=== PATIENT | female | born 1955 | race Caucasian/White ===

== ENCOUNTER → 2019-10-07 | Outpatient (CLI) | payer MEDICARE, OTHER ==
--- NOTE | 2019-10-07 19:34 | RAD ---
CHEST PA LATERAL Technique: PA and lateral views of the chest were obtained. Clinical History: September 11, 2014 Comparison: None. Findings: The heart is mildly enlarged. There is an old right sixth rib fracture. Linear opacities lung bases are seen previously likely discoid atelectasis or scar. Impression: Mild cardiomegaly. Stable appearance of the chest. Electronically signed by: Kevon Campbell III, MD (10/07/2019 7:32 PM) [id number]
[2019-10-07 19:58] LABS: BASO % 0 % (0-3); EOS % 0 % (0-3); HEMATOCRIT 44.5 % (36.0-47.0); HEMOGLOBIN 14.7 g/dL (12.0-15.5); LYMPH % 17 % (24-48); MEAN CORPUSCULAR HEMOGLOBIN 32 pg (25-35); MEAN CORPUSCULAR HGB CONC 33 g/dL (31-37); MEAN CORPUSCULAR VOLUME 95 fL (79-100); MONO # 0.9 x10^3/uL (0.0-1.1); MONO % 7 % (0-9); NEUT # 9.3 x10^3uL (1.8-7.7); NEUT % 76 % (31-73); PLATELET COUNT 253 x10^3/uL (140-400); RED BLOOD COUNT 4.67 x10^6/uL (3.50-5.40); RED CELL DISTRIBUTION WIDTH 13.1 % (11.5-14.5); WHITE BLOOD COUNT 12.3 x10^3/uL (4.0-11.0)
[2019-10-07 20:04] LABS: ALBUMIN 4.2 g/dL (3.4-5.0); ALBUMIN/GLOBULIN RATIO 1.1 (1.0-1.7); CALCIUM 9.7 mg/dL (8.5-10.1); CREATININE 0.7 mg/dL (0.6-1.0); GFR 85.1; POTASSIUM 4.2 mmol/L (3.5-5.1); TOTAL BILIRUBIN 0.4 mg/dL (0.2-1.0)
== END | disposition home or self-care (01) ==
LOC: RAD 18:55
PROVIDERS: ATTEND Family Medicine
DX: J10.1 Influenza due to other identified influenza virus with other respiratory manifestations (principal); I51.7 Cardiomegaly
CPT/HCPCS: 36415; 71046; 80053; 85025

== ENCOUNTER 2020-06-08 12:23 | Emergency (ER) | payer MEDICARE, OTHER ==
[~2020-06-08] VITALS: Ht 149.9 cm; Wt 66.0 kg
--- NOTE | 2020-06-08 12:41 | EKG ---
[address] [address] Test Date: 2020-06-08 Test Time: 12:34:37 Pat Name: YOANDY CORLEY Department: Room: Gender: F [employer]il[employer] Maker: TORRI : 1955 Requested By: GIO MOREIRA Order Number: [id number] Reading MD: Bhavin Hung Measurements Intervals [employer] Rate: 114 P: 70 AR: 164 QRS: 30 QRSD: 68 T: 51 QT: 314 QTc: 436 Interpretive Statements SINUS TACHYCARDIA LOW VOLTAGE ABNORMAL ECG Electronically Signed On 06-09-2020 10:33:04 [employer]ARN TESTER by Bhavin Hung
[2020-06-08] MEDS ORDERED: ASPIRIN CHEWABLE 81 MG TABLET. PO ONE (12:45)
[2020-06-08 12:52] LABS: BASO % 0 % (0-3); EOS # 0.1 x10^3/uL (0.0-0.7); EOS % 1 % (0-3); HEMATOCRIT 38.2 % (36.0-47.0); HEMOGLOBIN 12.7 g/dL (12.0-15.5); LYMPH % 7 % (24-48); MEAN CORPUSCULAR HEMOGLOBIN 32 pg (25-35); MEAN CORPUSCULAR HGB CONC 33 g/dL (31-37); MEAN CORPUSCULAR VOLUME 98 fL (79-100); MONO # 0.4 x10^3/uL (0.0-1.1); MONO % 3 % (0-9); NEUT # 13.8 x10^3uL (1.8-7.7); NEUT % 90 % (31-73); PLATELET COUNT 190 x10^3/uL (140-400); RED BLOOD COUNT 3.92 x10^6/uL (3.50-5.40); RED CELL DISTRIBUTION WIDTH 13.4 % (11.5-14.5); WHITE BLOOD COUNT 15.4 x10^3/uL (4.0-11.0)
[2020-06-08] MEDS ORDERED: IV NORMAL SALINE 1,000ML 1,000 ML IV ONE (13:00)
--- NOTE | 2020-06-08 13:04 | PHYS DOC ---
Past History Past Medical History: Anxiety, Asthma, COPD, Fibromyalgia, Migraines Additional Past Medical Histor: osteoporosis, restless legs, irregular heart beat, sleep apnea, disc diseas Past Surgical History: Tonsillectomy, Tubal ligation, Other Additional Past Surgical Histo: , bunionectomy, neck surgery Alcohol Use: None General Adult EDM: Chief Complaint: CHEST PAIN HPI: HPI: 64-year-old female presents with shortness of breath and irregular heartbeat. Patient has COPD. She was recently treated with 60 mg of prednisone a day for 10 days. She has been off Eliquis now for 3 days and her shortness of breath has gotten worse again. She has been on antibiotics multiple times over the last 3 months. Her most recent stress test was a couple years ago. She was told she had an irregular heartbeat and some aortic stenosis. She does not know about any vessel occlusions. She did not mention of chest pain to me, but does state that when she is exerting herself she gets sweaty and more short of breath. She denies fever or chills. Review of Systems: Review of Systems: Constitutional: Denies fever or chills Eyes: Denies change in visual acuity HENT: Denies nasal congestion or sore throat Respiratory: shortness of breath Cardiovascular: Denies chest pain or edema GI: Denies abdominal pain, nausea, vomiting, bloody stools or diarrhea : Denies dysuria Musculoskeletal: Denies back pain or joint pain Integument: Denies rash Neurologic: Denies headache, focal weakness or sensory changes Endocrine: Denies polyuria or polydipsia Lymphatic: Denies swollen glands Psychiatric: Denies depression or anxiety Current Medications: Current Meds: Current Medications Medications (Trade) Dose Ordered Sig/Lars Start Time Stop Time Status Last Admin Dose Admin Aspirin (Aspirin Chewable) 324 mg 1X ONCE 06/08/20 12:45 06/08/20 12:46 DC Sodium Chloride 1,000 ml @ 1,000 mls/hr 1X ONCE 06/08/20 13:00 06/08/20 13:59 Allergies: Allergies: Allergies Coded Allergies Type Severity Reaction Last Updated Verified Sulfa (Sulfonamide Antibiotics) Allergy Severe Swelling 06/08/20 Yes erythromycin base Allergy Severe Swelling 06/08/20 Yes moxifloxacin HCl Allergy Severe Swelling 06/08/20 Yes loracarbef Allergy Mild Rash 06/08/20 Yes Physical Exam: PE: Constitutional: Well developed, well nourished, no acute distress, non-toxic appearance. [] HENT: Normocephalic, atraumatic, bilateral external ears normal, oropharynx moist, no oral exudates, nose normal. [] Eyes: PERRLA, EOMI, conjunctiva normal, no discharge. [] Neck: Normal range of motion, no tenderness, supple, no stridor. [] Cardiovascular: Heart rate regular rhythm, no murmur [] Lungs & Thorax: Bilateral breath sounds with diffuse expiratory wheezing. [] Abdomen: Bowel sounds normal, soft, no tenderness, no masses, no pulsatile masses. [] Skin: Warm, dry, no erythema, no rash. [] Back: No tenderness, no CVA tenderness. [] Extremities: No tenderness, no cyanosis, no clubbing, ROM intact, no edema. [] Neurologic: Alert and oriented X 3, normal motor function, normal sensory function, no focal deficits noted. [] Psychologic: Affect normal, judgement normal, mood normal. [] Current Patient Data: Labs: Laboratory Tests Test 06/08/20 12:35 White Blood Count 15.4 x10^3/uL (4.0-11.0) H Red Blood Count 3.92 x10^6/uL (3.50-5.40) Hemoglobin 12.7 g/dL (12.0-15.5) Hematocrit 38.2 % (36.0-47.0) Mean Corpuscular Volume 98 fL (79-100) Mean Corpuscular Hemoglobin 32 pg (25-35) Mean Corpuscular Hemoglobin Concent 33 g/dL (31-37) Red Cell Distribution Width 13.4 % (11.5-14.5) Platelet Count 190 x10^3/uL (140-400) Neutrophils (%) (Auto) 90 % (31-73) H Lymphocytes (%) (Auto) 7 % (24-48) L Monocytes (%) (Auto) 3 % (0-9) Eosinophils (%) (Auto) 1 % (0-3) Basophils (%) (Auto) 0 % (0-3) Neutrophils # (Auto) 13.8 x10^3uL (1.8-7.7) H Lymphocytes # (Auto) 1.0 x10^3/uL (1.0-4.8) Monocytes # (Auto) 0.4 x10^3/uL (0.0-1.1) Eosinophils # (Auto) 0.1 x10^3/uL (0.0-0.7) Basophils # (Auto) 0.0 x10^3/uL (0.0-0.2) Platelet Estimate Pending Vital Signs: Vital Signs Date Time Temp Pulse Resp B/P (MAP) Pulse Ox O2 Delivery O2 Flow Rate FiO2 06/08/20 12:30 99.6 110 22 83/53 (63) 96 Nasal Cannula 3.0 EKG: EKG: Sinus tachycardia, rate 114, normal axis, no ST elevation or depression. [] Radiology/Procedures: Radiology/Procedures: [] Impressions: PORTABLE CHEST 1V History: Reason: CHEST PAIN / Spl. Instructions: / History: Comparison: October 07, 2019 Findings: Bilateral interstitial thickening. No pleural effusion. No pneumothorax. Postop changes lower cervical spine. Enlarged cardiac size, unchanged. Bilateral glenohumeral DJD. Impression: 1. Bilateral interstitial thickening, may resent pulmonary edema or infection including viral pneumonia. 2. Unchanged enlarged cardiac size. Electronically signed by: Fidel Woo DO (06/08/2020 1:02 PM) [id number] DICTATED AND SIGNED BY: FIDEL WOO DO DATE: 06/08/20 1302 CC: GIO MOREIRA DO; LV DELGADO MD ~ EXAM: CT angiography of the chest with intravenous contrast. HISTORY: Shortness of breath. Tachycardia. Hypertension. TECHNIQUE: Computed tomographic images of the chest were obtained following the administration of intravenous contrast according to angiography protocol. Multiplanar reformatting was performed and three dimensional maximum intensity projection images were obtained. *One or more of the following individualized dose reduction techniques were utilized for this examination: 1. Automated exposure control. 2. Adjustment of the mA and/or kV according to patient size. 3. Use of iterative reconstruction technique. COMPARISON: None. FINDINGS: There is no evidence of pulmonary embolus. The heart is normal in size. There is a small pericardial effusion. There is calcified atherosclerotic plaque involving the aorta and main aortic branch vessels. There are enlarged mediastinal and hilar lymph nodes. For reference purposes, there is a right paratracheal lymph node measuring 2.4 cm, a prevascular lymph node measuring 2.0 cm and right hilar lymph node measuring 2.0 cm. There are trace bilateral pleural effusions. There is no pneumothorax. There is fairly diffuse groundglass infiltrate with septal line thickening. No consolidation is seen. There is hepatomegaly and hepatic steatosis. There are degenerative changes involving the spine. There is no suspicious osseous lesion. There is cervical spinal fusion instrumentation, partially included on the [id number]. IMPRESSION: 1. No evidence of pulmonary embolism. 2. Diffuse groundglass infiltrate with superimposed areas of septal line thickening. No consolidation is seen. 3. Mediastinal and hilar lymphadenopathy, likely reactive given the aforementioned finding. 4. Hepatomegaly and hepatic steatosis. Electronically signed by: Heidi Gomez MD (06/08/2020 2:55 PM) [id number] DICTATED AND SIGNED BY: HEIDI GOMEZ MD DATE: 06/08/20 1455 CC: GIO MOREIRA DO; LV DELGADO MD ~ Heart Score: HEART Score for Chest Pain: HEART Score for Chest Pain Response (Comments) Value History Moderately Suspicious 1 ECG Nonspecific Repolarizatio 1 Age >45 - < 65 1 Risk Factors 1 or 2 Risk Factors 1 Troponin < Normal Limit 0 Total 4 Risk Factors: Risk Factors: DM, Current or recent (<one month) smoker, HTN, HLP, family history of CAD, obesity. Risk Scores: Score 0 - 3: 2.5% MACE over next 6 weeks - Discharge Home Score 4 - 6: 20.3% MACE over next 6 weeks - Admit for Clinical Observation Score 7 - 10: 72.7% MACE over next 6 weeks - Early Invasive Strategies Course & Med Decision Making: Course & Med Decision Making Pertinent Labs and Imaging studies reviewed. (See chart for details) The patient has a mildly elevated white count of which is expected being on prednisone recently. She is hypotensive though she continues to map over 60. She is awake and cooperative and mentating well. She was recently on 60 mg a day of prednisone for 10 days. I wonder if her hypotension could be partially related to cortisol suppression. I have ordered a DuoNeb treatment, 125 Solu- Medrol. She is on 3 L by nasal cannula with an O2 sat 96%. Her heart rate was 114 on arrival and has decreased to around 100. She is diffusely wheezing all over lung mason. I have ordered a CTA to rule out pulmonary embolus. I spoke with her primary doctor Dr. Delgado and he thought this repeat episode warranted potential transfer to [facility]. I spoke with the hospitalist at [facility], Dr. Musa and he has accepted the patient for transfer and admission. She will go by ambulance. EKG shows sinus tachycardia, troponin is normal. 40 minutes of critical care time was spent on this patient exclusive of other billable procedures. [] Dragon Disclaimer: Dragon Disclaimer: This electronic medical record was generated, in whole or in part, using a voice recognition dictation system. Departure Departure: Impression: Primary Impression: COPD with acute exacerbation Additional Impression: Hypotension Disposition: 01 DC HOME SELF CARE/HOMELESS Condition: STABLE Referrals: LV DELGADO MD (PCP) GIO MOREIRA DO Jun 08, 2020 13:04
[2020-06-08 13:06] LABS: CALCIUM 9.2 mg/dL (8.5-10.1); CREATININE 0.9 mg/dL (0.6-1.0); GFR 63.4; POTASSIUM 3.9 mmol/L (3.5-5.1)
[2020-06-08 13:19] LABS: ALBUMIN 3.2 g/dL (3.4-5.0); ALBUMIN/GLOBULIN RATIO 0.8 (1.0-1.7); TOTAL BILIRUBIN 1.1 mg/dL (0.2-1.0); TOTAL PROTEIN 7.3 g/dL (6.4-8.2)
[2020-06-08] MEDS ORDERED: methylPREDNISolone SOD SUCC PF 125 MG/2 ML VIAL. IV ONE (13:30)
[2020-06-08 13:32] LABS: % EOS 2 % (0-5); % LYMPHS 5 % (24-48); % MONOS 2 % (0-10); % SEGS 91 % (35-66); PLT ESTIMATE ADEQUATE (ADEQUATE)
[2020-06-08 13:46] LABS: BACTERIA,URINE MOD /HPF (0-FEW); BILIRUBIN,URINE NEG (NEG); CLARITY,URINE HAZY; COLOR,URINE YELLOW; GLUCOSE,URINE NEG (NEG); NITRITE,URINE NEG (NEG); RBC,URINE 0 /HPF (0-2); SQUAMOUS EPITHELIAL CELL,UR FEW /LPF; UROBILINOGEN,URINE 0.2 mg/dL (0.2 mg/dL)
[2020-06-08] MEDS ORDERED: IPRATRPIUM/ALBUTEROL 0.5/2.5MG 3 ML NEBU. NEB ONE (14:00)
[2020-06-08] MEDS ORDERED: IOHEXOL 350 MG/ML 100 ML VIAL. IV ONE (14:15)
--- NOTE | 2020-06-08 14:59 | RAD ---
EXAM: CT angiography of the chest with intravenous contrast. HISTORY: Shortness of breath. Tachycardia. Hypertension. TECHNIQUE: Computed tomographic images of the chest were obtained following the administration of intravenous contrast according to angiography protocol. Multiplanar reformatting was performed and three dimensional maximum intensity projection images were obtained. *One or more of the following individualized dose reduction techniques were utilized for this examination: 1. Automated exposure control. 2. Adjustment of the mA and/or kV according to patient size. 3. Use of iterative reconstruction technique. COMPARISON: None. FINDINGS: There is no evidence of pulmonary embolus. The heart is normal in size. There is a small pericardial effusion. There is calcified atherosclerotic plaque involving the aorta and main aortic branch vessels. There are enlarged mediastinal and hilar lymph nodes. For reference purposes, there is a right paratracheal lymph node measuring 2.4 cm, a prevascular lymph node measuring 2.0 cm and right hilar lymph node measuring 2.0 cm. There are trace bilateral pleural effusions. There is no pneumothorax. There is fairly diffuse groundglass infiltrate with septal line thickening. No consolidation is seen. There is hepatomegaly and hepatic steatosis. There are degenerative changes involving the spine. There is no suspicious osseous lesion. There is cervical spinal fusion instrumentation, partially included on the [id number]. IMPRESSION: 1. No evidence of pulmonary embolism. 2. Diffuse groundglass infiltrate with superimposed areas of septal line thickening. No consolidation is seen. 3. Mediastinal and hilar lymphadenopathy, likely reactive given the aforementioned finding. 4. Hepatomegaly and hepatic steatosis. Electronically signed by: Heidi Mckeon MD (06/08/2020 2:55 PM) [id number]
[2020-06-08 16:44] VITALS: BP 93/45
== END 2020-06-08 17:20 | disposition short-term general hospital (02) ==
LOC: ER 12:23
DX: J44.1 Chronic obstructive pulmonary disease with (acute) exacerbation (principal); I95.9 Hypotension, unspecified; I49.9 Cardiac arrhythmia, unspecified; F41.9 Anxiety disorder, unspecified; M79.7 Fibromyalgia; G43.909 Migraine, unspecified, not intractable, without status migrainosus; Z20.828 Contact with and (suspected) exposure to other viral communicable diseases; Z88.2 Allergy status to sulfonamides; Z88.1 Allergy status to other antibiotic agents; Z88.8 Allergy status to other drugs, medicaments and biological substances
CPT/HCPCS: 36415; 71045; 71275; 80053; 81001; 82803; 83880; 84484; 85007; 85025; 87086; 93005; 94640; 96361; 96374; 99285; C9803; J2930; J7030; Q9967; U0003

== ENCOUNTER → 2021-01-11 | Outpatient (CLI) | payer OTHER ==
--- NOTE | 2021-01-11 15:55 | RAD ---
EXAM: Cervical spine, 5 views. HISTORY: Pain. COMPARISON: None. FINDINGS: There is a disc space fusion device at C4-C5. There is instrumented intraspinal fusion and interbody fusion at C6-C7. There is cervical kyphosis. There is mild anterolisthesis of C4 on C5. Thi s does not change between flexion and extension. There is no clear motion at the fused levels between flexion and extension. There is degenerative endplate remodeling with disc space narrowing and anter ior osteophytosis at C5-C6. There is multilevel facet arthropathy. There is an inferior right lateral head tilt. IMPRESSION: 1. Displaced fusion device at C4-C5 and instrumented anterior spinal fusion and interbody fusion at C 6-C7. There is no motion at the fused levels between flexion and extension. 2. Cervical kyphosis and mild anterolisthesis of C4 on C5. 3. Multiple level degenerative change, primarily at C5-C6. Electronically signed by: Heidi Mckeon MD (01/11/2021 3:53 PM) [id number]
== END ==
LOC: RAD 15:12
PROVIDERS: ATTEND Neurological Surgery
DX: M47.12 Other spondylosis with myelopathy, cervical region (principal); M43.12 Spondylolisthesis, cervical region; M40.292 Other kyphosis, cervical region
CPT/HCPCS: 72040

== ENCOUNTER 2021-09-04 13:23 | Inpatient (IN) | payer MEDICARE, OTHER ==
[~2021-09-04] VITALS: Ht 149.9 cm; Wt 65.2 kg
[2021-09-04] MEDS ORDERED: IOHEXOL 350 MG/ML 100 ML VIAL. IV ONE (14:45)
[2021-09-04] MEDS ORDERED: IPRATRPIUM/ALBUTEROL 0.5/2.5MG 3 ML NEBU. NEB ONE (14:45)
[2021-09-04] MEDS ORDERED: methylPREDNISolone SOD SUCC PF 125 MG/2 ML VIAL. IV ONE (14:45)
[2021-09-04] MEDS ORDERED: CONTRAST GIVEN. MC PRN (15:00)
[2021-09-04 15:20] LABS: BASO % 0 % (0-3); EOS # 0.2 x10^3/uL (0.0-0.7); EOS % 2 % (0-3); HEMATOCRIT 35.9 % (36.0-47.0); HEMOGLOBIN 11.8 g/dL (12.0-15.5); LYMPH # 1.2 x10^3/uL (1.0-4.8); LYMPH % 10 % (24-48); MEAN CORPUSCULAR HEMOGLOBIN 30 pg (25-35); MEAN CORPUSCULAR HGB CONC 33 g/dL (31-37); MEAN CORPUSCULAR VOLUME 91 fL (79-100); MONO # 0.6 x10^3/uL (0.0-1.1); MONO % 5 % (0-9); NEUT # 10.5 x10^3uL (1.8-7.7); NEUT % 84 % (31-73); PLATELET COUNT 284 x10^3/uL (140-400); RED BLOOD COUNT 3.94 x10^6/uL (3.50-5.40); RED CELL DISTRIBUTION WIDTH 14.2 % (11.5-14.5); WHITE BLOOD COUNT 12.6 x10^3/uL (4.0-11.0)
[2021-09-04 15:30] LABS: CALCIUM 8.8 mg/dL (8.5-10.1); CREATININE 0.6 mg/dL (0.6-1.0); POTASSIUM 4.6 mmol/L (3.5-5.1)
[2021-09-04 15:36] LABS: ALBUMIN 3.2 g/dL (3.4-5.0); ALBUMIN/GLOBULIN RATIO 0.9 (1.0-1.7); TOTAL BILIRUBIN 0.7 mg/dL (0.2-1.0); TOTAL PROTEIN 6.9 g/dL (6.4-8.2)
[2021-09-04 16:31] LABS: BILIRUBIN,URINE NEG (NEG); CLARITY,URINE CLEAR; COLOR,URINE YELLOW; GLUCOSE,URINE NEG (NEG)
[2021-09-04 16:32] LABS: BACTERIA,URINE 0 /HPF (0-FEW); NITRITE,URINE NEG (NEG); RBC,URINE 0 /HPF (0-2); UROBILINOGEN,URINE 0.2 mg/dL (0.2 mg/dL); WBC,URINE 0 /HPF (0-4)
--- NOTE | 2021-09-04 16:32 | RAD ---
CT arteriogram of the chest. HISTORY: Chest pain, short of air CT arteriogram of the chest was done using 100 mL Omnipaque 350 contrast. Coronal MIP images were rec onstructed. Thyroid is homogeneous. There is mediastinal adenopathy adjacent the aortic arch and in t he paratracheal region. Hilar lymph nodes are upper normal in size. There is a trace of pleural effus ion on each side. Visualized portions of the liver and spleen are unremarkable. Adrenal glands are no rmal. There are diffuse bilateral groundglass infiltrates in the lungs which suggest Covid pneumonia although other atypical pneumonia is possible. Study is negative for pulmonary embolus. IMPRESSION: 1. Bilateral groundglass infiltrates. 2. Mediastinal adenopathy. 3. Negative for a pulmonary embolus. 4. Trace of pleural effusion on each side. PQRS Compliance Statement: One or more of the following individualized dose reduction techniques were utilized for this examinat ion: 1. Automated exposure control 2. Adjustment of the mA and/or kV according to patient size 3. Use of iterative reconstruction technique Electronically signed by: Tru Hunter MD (09/04/2021 4:30 PM) [facility]
[2021-09-04 16:44] LABS: INFLUENZA A PATIENT NEGATIVE (NEGATIVE); INFLUENZA B PATIENT NEGATIVE (NEGATIVE)
[2021-09-04] MEDS ORDERED: AZITHROMYCIN 500 MG in IV NORMAL SALINE 250ML 250 ML IV ONE (17:00)
[2021-09-04] MEDS ORDERED: IV NORMAL SALINE 50ML 50 ML ONE (17:12)
[2021-09-04] MEDS ORDERED: cefTRIAXone SODIUM 1 GM VIAL ONE (17:12)
--- NOTE | 2021-09-04 17:17 | PHYS DOC ---
Past History Past Medical History: Anxiety, Asthma, COPD, Fibromyalgia, Migraines Additional Past Medical Histor: osteoporosis, restless legs, irregular heart beat, sleep apnea, disc diseas (KATHI RAMOS APRN) Past Surgical History: No Surgical History Additional Past Surgical Histo: , bunionectomy, neck surgery (KATHI RAMOS APRN) Alcohol Use: None (KATHI RAMOS APRN) General Adult EDM: Chief Complaint: SHORTNESS OF BREATH HPI: HPI: Patient is a 65-year-old female who presents to the emergency department for multiple complaints that started on Monday. Patient is reporting increased cough, shortness of breath, nausea, midsternal chest pressure worse with cough and deep inspiration and loss of taste and smell. She reports many sick exposures at home and her nephew is Covid positive. Patient has a history of COPD she does use Combivent breathing treatments at home. She does not have any home oxygen. Her found her oxygen at the [facility] and she has been wearing 3 L at home for the last 2 days. Her room air oxygen saturation was 80%. Patient was titrated on 4 L via nasal cannula and is satting at 98%. Patient reports that she saw Dr. Garcia in his office yesterday and received a IM injection of Rocephin. Patient denies any fevers, vomiting, diarrhea, abdominal pain. (KATHI RAMOS APRN) Review of Systems: Review of Systems: Constitutional: negative unless reported in HPI Eyes: negative unless reported in HPI HENT: negative unless reported in HPI Respiratory: negative unless reported in HPI Cardiovascular: negative unless reported in HPI GI: negative unless reported in HPI : negative unless reported in HPI Musculoskeletal: negative unless reported in HPI Integument: negative unless reported in HPI Neurologic: negative unless reported in HPI Endocrine: negative unless reported in HPI Lymphatic: negative unless reported in HPI Psychiatric: negative unless reported in HPI (KATHI RAMOS APRN) Current Medications: Current Meds: Current Medications Medications (Trade) Dose Ordered Sig/Lars Start Time Stop Time Status Last Admin Dose Admin Albuterol/ Ipratropium (Duoneb) 3 ml 1X ONCE 09/04/21 14:45 09/04/21 14:46 DC 09/04/21 15:44 3 ML Azithromycin 500 mg/Sodium Chloride 250 ml @ 250 mls/hr 1X ONCE 09/04/21 17:00 09/04/21 17:59 UNV Ceftriaxone Sodium 1 gm/ Sodium Chloride 50 ml @ 100 mls/hr 1X ONCE 09/04/21 17:00 09/04/21 17:29 UNV Info (Do NOT chart on this entry -- for MONITORING) 1 each PRN DAILY PRN 09/04/21 15:00 09/06/21 14:59 Iohexol (Omnipaque 350 Mg/ml) 100 ml 1X ONCE 09/04/21 14:45 09/04/21 14:47 DC 09/04/21 14:45 100 ML Methylprednisolone Sodium Succinate (SOLU-Medrol 125MG VIAL) 125 mg 1X ONCE 09/04/21 14:45 09/04/21 14:46 DC 09/04/21 15:29 125 MG (KATHI RAMOS APRN) Allergies: Allergies: Allergies Coded Allergies Type Severity Reaction Last Updated Verified Sulfa (Sulfonamide Antibiotics) Allergy Severe Swelling 06/08/20 Yes erythromycin base Allergy Severe Swelling 06/08/20 Yes moxifloxacin HCl Allergy Severe Swelling 06/08/20 Yes loracarbef Allergy Mild Rash 06/08/20 Yes (KATHI RAMOS APRN) Physical Exam: PE: Constitutional: Well developed, well nourished, no acute distress, non-toxic appearance. [] HENT: Normocephalic, atraumatic, bilateral external ears normal, oropharynx moist, no oral exudates, nose normal. [] Eyes: PERRL, EOMI, conjunctiva normal, no discharge. [] Neck: Normal range of motion, no tenderness, supple, no stridor. [] Cardiovascular:Heart rate regular rhythm, no murmur, midsternal chest pain reproducible with cough and deep inspiration [] Lungs & Thorax: Wheezing noted throughout Abdomen: Bowel sounds normal, soft, no tenderness, no masses, no pulsatile masses. [] Skin: Warm, dry, no erythema, no rash. [] Back: Normal range of motion Extremities: No tenderness, no cyanosis, no clubbing, ROM intact, no edema. [] Neurologic: Alert and oriented X 3, normal motor function, normal sensory function, no focal deficits noted. [] Psychologic: Affect normal, judgement normal, mood normal. [] (RACHEL,KATHI L CARTON MARKER MACHINE) Current Patient Data: Labs: Laboratory Tests Test 09/04/21 14:58 09/04/21 15:32 09/04/21 15:58 White Blood Count 12.6 x10^3/uL (4.0-11.0) H Red Blood Count 3.94 x10^6/uL (3.50-5.40) Hemoglobin 11.8 g/dL (12.0-15.5) L Hematocrit 35.9 % (36.0-47.0) L Mean Corpuscular Volume 91 fL (79-100) Mean Corpuscular Hemoglobin 30 pg (25-35) Mean Corpuscular Hemoglobin Concent 33 g/dL (31-37) Red Cell Distribution Width 14.2 % (11.5-14.5) Platelet Count 284 x10^3/uL (140-400) Neutrophils (%) (Auto) 84 % (31-73) H Lymphocytes (%) (Auto) 10 % (24-48) L Monocytes (%) (Auto) 5 % (0-9) Eosinophils (%) (Auto) 2 % (0-3) Basophils (%) (Auto) 0 % (0-3) Neutrophils # (Auto) 10.5 x10^3uL (1.8-7.7) H Lymphocytes # (Auto) 1.2 x10^3/uL (1.0-4.8) Monocytes # (Auto) 0.6 x10^3/uL (0.0-1.1) Eosinophils # (Auto) 0.2 x10^3/uL (0.0-0.7) Basophils # (Auto) 0.0 x10^3/uL (0.0-0.2) Sodium Level 135 mmol/L (136-145) L Potassium Level 4.6 mmol/L (3.5-5.1) Chloride Level 98 mmol/L (98-107) Carbon Dioxide Level 28 mmol/L (21-32) Anion Gap 9 (6-14) Blood Urea Nitrogen 11 mg/dL (7-20) Creatinine 0.6 mg/dL (0.6-1.0) Estimated GFR (Cockcroft-Gault) 101.0 BUN/Creatinine Ratio 18 (6-20) Glucose Level 120 mg/dL (70-99) H Lactic Acid Level 0.8 mmol/L (0.4-2.0) Calcium Level 8.8 mg/dL (8.5-10.1) Total Bilirubin 0.7 mg/dL (0.2-1.0) Aspartate Amino Transferase (AST) 33 U/L (15-37) Alanine Aminotransferase (ALT) 26 U/L (14-59) Alkaline Phosphatase 96 U/L (46-116) Troponin I High Sensitivity 4 ng/L (4-50) Total Protein 6.9 g/dL (6.4-8.2) Albumin 3.2 g/dL (3.4-5.0) L Albumin/Globulin Ratio 0.9 (1.0-1.7) L Influenza Type A (Rapid) Negative (NEGATIVE) Influenza Type B (Rapid) Negative (NEGATIVE) SARS-CoV-2 Antigen (Rapid) Negative (NEGATIVE) Urine Collection Type Clean catch Urine Color Yellow Urine Clarity Clear Urine pH 7.0 Urine Specific [place] 1.010 Urine Protein Neg (NEG-TRACE) Urine Glucose (UA) Neg mg/dL (NEG) Urine Ketones (Stick) Neg mg/dL (NEG) Urine Blood Neg (NEG) Urine Nitrite Neg (NEG) Urine Bilirubin Neg (NEG) Urine Urobilinogen Dipstick 0.2 mg/dL (0.2 mg/dL) Urine Leukocyte Esterase Neg (NEG) Urine RBC 0 /HPF (0-2) Urine WBC 0 /HPF (0-4) Urine Bacteria 0 /HPF (0-FEW) Vital Signs: Vital Signs Date Time Temp Pulse Resp B/P (MAP) Pulse Ox O2 Delivery O2 Flow Rate FiO2 09/04/21 15:45 91 Nasal Cannula 4.0 09/04/21 14:20 99.0 96 18 101/70 (80) (KATHI RAMOS CARTON MARKER MACHINE) EKG: EKG: EKG performed by ER staff at 1446 shows sinus rhythm with a rate of 94, QTC of 435, no STEMI read by Dr. Moreira at 1450. [] (KATHI RAMOS CARTON MARKER MACHINE) Radiology/Procedures: Radiology/Procedures: []PROCEDURE: CT ANGIOGRAPHY CHEST CT arteriogram of the chest. HISTORY: Chest pain, short of air CT arteriogram of the chest was done using 100 mL Omnipaque 350 contrast. Coronal MIP images were reconstructed. Thyroid is homogeneous. There is mediastinal adenopathy adjacent the aortic arch and in the paratracheal region. Hilar lymph nodes are upper normal in size. There is a trace of pleural effusion on each side. Visualized portions of the liver and spleen are unremarkable. Adrenal glands are normal. There are diffuse bilateral groundglass infiltrates in the lungs which suggest Covid pneumonia although other atypical pneumonia is possible. Study is negative for pulmonary embolus. IMPRESSION: 1. Bilateral groundglass infiltrates. 2. Mediastinal adenopathy. 3. Negative for a pulmonary embolus. 4. Trace of pleural effusion on each side. PQRS Compliance Statement: One or more of the following individualized dose reduction techniques were utilized for this examination: 1. Automated exposure control 2. Adjustment of the mA and/or kV according to patient size 3. Use of iterative reconstruction technique Electronically signed by: Tru Hunter MD (09/04/2021 4:30 PM) [facility] DICTATED AND SIGNED BY: TRU HUNTER MD DATE: 09/04/21 1625 CC: LV DELGADO MD; KATHI RAMOS APRN ~MTH0 0 (KATHI RAMOS APRN) Heart Score: C/O Chest Pain: Yes HEART Score for Chest Pain: HEART Score for Chest Pain Response (Comments) Value History Slighlty/Non-Suspicious 0 ECG Normal 0 Age >45 - < 65 1 Risk Factors 1 or 2 Risk Factors 1 Troponin < Normal Limit 0 Total 2 Risk Factors: Risk Factors: DM, Current or recent (<one month) smoker, HTN, HLP, family history of CAD, obesity. Risk Scores: Score 0 - 3: 2.5% MACE over next 6 weeks - Discharge Home Score 4 - 6: 20.3% MACE over next 6 weeks - Admit for Clinical Observation Score 7 - 10: 72.7% MACE over next 6 weeks - Early Invasive Strategies (KATHI RAMOS APRN) Course & Med Decision Making: Course & Med Decision Making Pertinent Labs and Imaging studies reviewed. (See chart for details) [] Patient presents to the emergency department for multiple complaints. Patient is reporting increased shortness of breath, increased cough, midsternal chest pressure worse with cough and deep inspiration, loss of taste and smell and nausea. Patient does not wear any oxygen at home for her COPD but has been using oxygen that she found at the [facility] over the last 2 days. She was 80% on room air and is on 4 L via nasal cannula with an O2 saturation of 98%. Patient's work-up in the emergency department consisted of blood work, EKG, urinalysis. Imaging needed to be done of patient's chest to rule out pneumonia. She reports that Dr. Quevedo wants a CT a of her chest. This was ordered also to rule out pulmonary embolism since patient does have complaints of chest pain and shortness of breath. Patient is noted to have wheezing throughout her lung mason. Patient treated with steroids and a DuoNeb for COPD exacerbation as well as IV fluids. Patient was noted to have mild leukocytosis with a white blood cell count of 12.6. Her CMP and troponin were negative. No lactic acidosis was noted. Patient CTA shows bilateral groundglass opacities and trace pleural effusions. Patient will be treated with IV antibiotics. Although she is allergic to cephalosporins and erythromycin base her and her states that she tolerates Rocephin and azithromycin. I discussed the need for admissio n with patient and her for oxygen therapy and IV antibiotics and they are agreeable at this time. I discussed patient's findings with Dr. Garcia who agreed to admit the patient under his services for pneumonia and hypoxia. ER bridge orders placed at this time 1716. (KATHI RAMOS APRN) Dragon Disclaimer: Dragon Disclaimer: This electronic medical record was generated, in whole or in part, using a voice recognition dictation system. (KATHI RAMOS APRN) Attending Co-Sign The patient was seen and interviewed as well as examined at the bedside. The chart was reviewed. The case was discussed. Agree with the plan of care. (GIO MOREIRA DO) Departure Departure: Impression: Primary Impression: Pneumonia Qualified Codes: J18.9 - Pneumonia, unspecified organism Additional Impressions: Hypoxia Person under investigation for COVID-19 Disposition: ADMITTED INPATIENT Admitting Physician: Lv Delgado (KATHI RAMOS APRN) Condition: STABLE Referrals: LV DELGADO MD (PCP) Attending Signature Attending Signature I have participated in the care of this patient and I have reviewed and agree with all pertinent clinical information above including history, exam, and recommendations. (AYAD HEADLEY MD) KATHI RAMOS APRN Sep 04, 2021 17:17 AYAD HEADLEY MD Sep 05, 2021 01:10 GIO MOREIRA DO Sep 05, 2021 06:45
--- NOTE | 2021-09-04 17:22 | EKG ---
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
[2021-09-04] MEDS ORDERED: IV NORMAL SALINE 250ML 250 ML ONE (18:06)
[2021-09-04] MEDS ORDERED: AZITHROMYCIN 500 MG VIAL. IV ONE (18:06)
[2021-09-04] MEDS ORDERED: rOPINIRole 1 MG TABLET. PO ONE (18:45)
[2021-09-04] MEDS: GABAPENTIN 400 MG CAPSULE. PO SCH (21:37)
[2021-09-04] MEDS: methylPREDNISolone SOD SUCC PF 40 MG/ML VIAL. IV SCH (21:38)
[2021-09-04] MEDS: IPRATRPIUM/ALBUTEROL 0.5/2.5MG 3 ML NEBU. NEB SCH (21:50)
[2021-09-05] MEDS: IPRATRPIUM/ALBUTEROL 0.5/2.5MG 3 ML NEBU. NEB SCH ×4 (05:59→19:54)
[2021-09-05] MEDS: methylPREDNISolone SOD SUCC PF 40 MG/ML VIAL. IV SCH ×3 (06:30→22:53)
[2021-09-05 07:24] LABS: BASO % 0 % (0-3); EOS % 0 % (0-3); HEMATOCRIT 36.8 % (36.0-47.0); HEMOGLOBIN 12.3 g/dL (12.0-15.5); LYMPH # 0.6 x10^3/uL (1.0-4.8); LYMPH % 6 % (24-48); MEAN CORPUSCULAR HEMOGLOBIN 31 pg (25-35); MEAN CORPUSCULAR HGB CONC 34 g/dL (31-37); MEAN CORPUSCULAR VOLUME 92 fL (79-100); MONO # 0.5 x10^3/uL (0.0-1.1); MONO % 5 % (0-9); NEUT # 9.4 x10^3uL (1.8-7.7); NEUT % 89 % (31-73); PLATELET COUNT 281 x10^3/uL (140-400); RED CELL DISTRIBUTION WIDTH 14.3 % (11.5-14.5); WHITE BLOOD COUNT 10.6 x10^3/uL (4.0-11.0)
[2021-09-05 07:47] LABS: ALBUMIN/GLOBULIN RATIO 0.7 (1.0-1.7); CALCIUM 8.9 mg/dL (8.5-10.1); CREATININE 0.7 mg/dL (0.6-1.0); GFR 84.5; POTASSIUM 4.6 mmol/L (3.5-5.1); TOTAL BILIRUBIN 0.2 mg/dL (0.2-1.0); TOTAL PROTEIN 7.4 g/dL (6.4-8.2)
[2021-09-05] MEDS: ATORVASTATIN CALCIUM 20 MG TABLET PO SCH (09:53)
[2021-09-05] MEDS: GABAPENTIN 400 MG CAPSULE. PO SCH ×2 (09:53→22:53)
[2021-09-05] MEDS: MORPHINE ER 30 MG TABLET.ER PO SCH ×2 (11:39→19:54)
[2021-09-05] MEDS ORDERED: BENZONATATE 100 MG CAPSULE. PO PRN (12:30)
[2021-09-05] MEDS ORDERED: CETI10TA74 PO (13:13)
[2021-09-05] MEDS ORDERED: DULO60CA7 PO (13:13)
[2021-09-05] MEDS ORDERED: CEVI30CA11 PO (13:13)
[2021-09-05] MEDS ORDERED: METO-239 PO (13:13)
[2021-09-05] MEDS ORDERED: LORA-254 PO (13:13)
[2021-09-05] MEDS ORDERED: TAMS0.4C97 PO (13:13)
[2021-09-05] MEDS ORDERED: ALEN70TA71 PO (13:13)
[2021-09-05] MEDS ORDERED: GABA-587 PO (13:13)
[2021-09-05] MEDS ORDERED: ASPI-630 PO (13:13)
[2021-09-05] MEDS ORDERED: INSU100I11 SQ (13:13)
[2021-09-05] MEDS ORDERED: ALBU2.5V8 IH (13:13)
[2021-09-05] MEDS ORDERED: MORP-16 PO (13:13)
[2021-09-05] MEDS ORDERED: NORT10CA PO (13:13)
[2021-09-05] MEDS ORDERED: CHOL400T36 PO (13:13)
[2021-09-05] MEDS ORDERED: ATOR40TA59 PO (13:13)
[2021-09-05] MEDS ORDERED: ALBU2.5V5 NEB (13:13)
[2021-09-05] MEDS ORDERED: MONT10TA80 PO (13:13)
[2021-09-05] MEDS ORDERED: TIZA-75 PO (13:13)
[2021-09-05] MEDS ORDERED: ROPI1TAB4 PO ×2 (13:13)
[2021-09-05] MEDS ORDERED: MELO7.5T29 PO (13:13)
[2021-09-05] MEDS: LORazepam 1 MG TABLET PO SCH ×2 (14:26→22:53)
[2021-09-05] MEDS ORDERED: IV NORMAL SALINE 250ML 250 ML ONE (17:13)
[2021-09-05] MEDS ORDERED: cefTRIAXone SODIUM 1 GM VIAL ONE (17:13)
[2021-09-05] MEDS ORDERED: IV NORMAL SALINE 50ML 50 ML ONE (17:13)
[2021-09-05] MEDS ORDERED: AZITHROMYCIN 500 MG VIAL. IV ONE (17:13)
[2021-09-05] MEDS: rOPINIRole 1 MG TABLET. PO SCH ×2 (17:24→22:53)
[2021-09-05] MEDS ORDERED: AZITHROMYCIN 250 MG in IV NORMAL SALINE 250ML 250 ML IV SCH (18:00)
[2021-09-05] MEDS ORDERED: BENZ-8 PO (22:26)
[2021-09-05] MEDS ORDERED: UBID200C27 PO (22:26)
[2021-09-05] MEDS ORDERED: CYAN500T7 PO (22:26)
[2021-09-05] MEDS ORDERED: ASCO500C9 PO (22:26)
[2021-09-05] MEDS ORDERED: OMEG-117 PO (22:26)
[2021-09-05] MEDS ORDERED: FLUT1BLS3 IH (22:26)
[2021-09-05] MEDS ORDERED: NYST1000 PO (22:29)
--- NOTE | 2021-09-05 22:37 | NUR ---
The patient, YOANDY CORLEY, 65 y/o, F admitted by LV DELGADO MD, was given written information regarding hospital policies, unit procedures and contact persons. Valuables were checked and logged. Call light at bedside.
[2021-09-05] MEDS: MONTELUKAST 10 MG TABLET. PO SCH (22:53)
[2021-09-05] MEDS: NORTRIPTYLINE 10 MG CAPSULE PO SCH (22:53)
[2021-09-05 23:03] VITALS: BP 110/66
--- NOTE | 2021-09-05 23:36 | PN ---
SUBJECTIVE: A 65-year-old female who was seen initially in the office, was taken to the Emergency Room with acute respiratory failure. The patient had bilateral lobe pneumonia. She has had a long history of chronic lung disease and was on oxygen and had increased her oxygen several times up to 4 liters. She was at 80%. As a result of this, the patient was admitted to the hospital for further evaluation of her acute on top of chronic respiratory failure. She was COVID negative, however, but she does have bilateral lobe pneumonia. As a result of this, the patient was started on IV antibiotic therapy, aggressive pulmonary toilet as well as low dose steroids for her breathing issues. She is also a diabetic and we are monitoring that as well. OBJECTIVE: VITAL SIGNS: Blood pressure 135/70, respiratory rate 16, pulse 110, temperature of 99, is on 4 liters at 96, nasal cannula. HEENT: The patient's head was atraumatic, normocephalic. Eyes: PERRLA without jaundice. The mouth and throat were normal. NECK: The neck was supple without JVD, carotid or thyroidmegaly. LUNGS: Diminished, poor movement of air, crackles noted. CARDIOVASCULAR: Regular sinus rhythm, S1, S2, without murmur, rub, thrill, or extra heart sound. ABDOMEN: Soft, nontender. EXTREMITIES: No clubbing, cyanosis, nor edema. NEUROLOGIC: The patient is alert and oriented x 3. DIAGNOSTIC STUDIES: The patient in turn her CTA showed bilateral ground glass infiltrates, negative for pulmonary emboli and trace pleural effusions. IMPRESSION: Overall, then acute respiratory failure on top of chronic respiratory failure, chronic emphysema, sinus tachycardia, moderate protein malnutrition. COVID negative. PLAN: Continue with aggressive therapy and antibiotic therapy for now. SAMANTHA DR: Fabienne TID: [id number]
[2021-09-06] MEDS: IPRATRPIUM/ALBUTEROL 0.5/2.5MG 3 ML NEBU. NEB SCH ×4 (04:47→20:00)
[2021-09-06] MEDS: methylPREDNISolone SOD SUCC PF 40 MG/ML VIAL. IV SCH ×3 (05:33→21:34)
[2021-09-06 06:20] VITALS: BP 101/66
[2021-09-06] MEDS: GABAPENTIN 400 MG CAPSULE. PO SCH ×2 (08:27→20:14)
[2021-09-06] MEDS: ATORVASTATIN CALCIUM 20 MG TABLET PO SCH (08:27)
[2021-09-06] MEDS: CHOLECALCIFEROL (VITAMIN D3) 1,000 UNIT TABLET PO SCH (08:27)
[2021-09-06] MEDS: MELOXICAM 7.5 MG TABLET PO SCH (08:27)
[2021-09-06] MEDS: ASPIRIN ENTERIC COATED 81 MG TABLET.DR. PO SCH (08:27)
[2021-09-06] MEDS: CETIRIZINE HCL 10 MG TABLET PO SCH (08:27)
[2021-09-06] MEDS: DULoxetine HCL 60 MG CAPSULE.DR PO SCH (08:27)
[2021-09-06] MEDS: MORPHINE ER 30 MG TABLET.ER PO SCH ×2 (08:28→20:16)
[2021-09-06] MEDS: LORazepam 1 MG TABLET PO SCH ×3 (08:29→20:14)
[2021-09-06] MEDS: METOPROLOL SUCC 24HR ER 25 MG TAB.ER.24H. PO SCH (08:29)
[2021-09-06] MEDS: NORTRIPTYLINE 10 MG CAPSULE PO SCH ×2 (08:30→20:17)
[2021-09-06] MEDS: LACTOBACILLUS RHAMNOSUS GG 1 CAPSULE. PO SCH ×2 (08:34→20:15)
[2021-09-06] MEDS: FLUTICASONE 50MCG/NASAL SPRAY 16GM BOTTLE. NS SCH (09:00)
[2021-09-06 11:03] VITALS: BP 124/81
[2021-09-06] MEDS ORDERED: DEXTROSE 50% 25 GM / 50ML DISP.SYRIN. IV PRN (12:00)
[2021-09-06] MEDS: INSULIN LISPRO 300 UNITS/3 ML VIAL. SQ SCH ×2 (12:23→17:16)
[2021-09-06 15:06] VITALS: BP 117/75
[2021-09-06] MEDS: rOPINIRole 1 MG TABLET. PO SCH ×2 (17:13→20:15)
[2021-09-06] MEDS: AZITHROMYCIN 500 MG in IV NORMAL SALINE 250ML 250 ML IV SCH (20:14)
[2021-09-06] MEDS: MONTELUKAST 10 MG TABLET. PO SCH (20:15)
[2021-09-06 20:40] VITALS: BP 125/72
[2021-09-06 23:17] VITALS: BP 165/95
--- NOTE | 2021-09-07 03:35 | PN ---
SUBJECTIVE: A 65-year-old female with pneumonia, bilateral lobe as well as exacerbation of chronic obstructive pulmonary disease and acute on top of chronic respiratory failure. The patient is resting comfortably. Blood pressure 125/70, respiratory rate 20, pulse 100, afebrile, 3 liters at 95. She has made some improvement, although legs do show marked crackles and rhonchi throughout. She is improving, but because of her underlying close medical condition, the patient still requires aggressive therapy, receiving IV antibiotic therapy as well as steroid therapy for now. IMPRESSION: Pneumonia, bilateral lobe; acute exacerbation of chronic obstructive pulmonary disease secondary to pneumonia; acute on top of chronic respiratory failure. SARINA DR: Fabienne TID: [id number]
[2021-09-07] MEDS: IPRATRPIUM/ALBUTEROL 0.5/2.5MG 3 ML NEBU. NEB SCH ×4 (05:03→18:42)
[2021-09-07 05:56] VITALS: BP 133/82
[2021-09-07] MEDS: methylPREDNISolone SOD SUCC PF 40 MG/ML VIAL. IV SCH ×3 (06:09→21:08)
[2021-09-07] MEDS: INSULIN LISPRO 300 UNITS/3 ML VIAL. SQ SCH ×3 (08:00→17:00)
[2021-09-07] MEDS: CHOLECALCIFEROL (VITAMIN D3) 1,000 UNIT TABLET PO SCH (08:35)
[2021-09-07] MEDS: LORazepam 1 MG TABLET PO SCH ×3 (08:36→21:09)
[2021-09-07] MEDS: ATORVASTATIN CALCIUM 20 MG TABLET PO SCH (08:36)
[2021-09-07] MEDS: LACTOBACILLUS RHAMNOSUS GG 1 CAPSULE. PO SCH ×2 (08:36→21:08)
[2021-09-07] MEDS: DULoxetine HCL 60 MG CAPSULE.DR PO SCH (08:36)
[2021-09-07] MEDS: METOPROLOL SUCC 24HR ER 25 MG TAB.ER.24H. PO SCH (08:36)
[2021-09-07] MEDS: ASPIRIN ENTERIC COATED 81 MG TABLET.DR. PO SCH (08:36)
[2021-09-07] MEDS: MELOXICAM 7.5 MG TABLET PO SCH (08:37)
[2021-09-07] MEDS: GABAPENTIN 400 MG CAPSULE. PO SCH ×2 (08:37→21:09)
[2021-09-07] MEDS: CETIRIZINE HCL 10 MG TABLET PO SCH (08:37)
[2021-09-07] MEDS: MORPHINE ER 30 MG TABLET.ER PO SCH ×3 (08:37→21:10)
[2021-09-07] MEDS: FLUTICASONE 50MCG/NASAL SPRAY 16GM BOTTLE. NS SCH (08:40)
[2021-09-07] MEDS: NORTRIPTYLINE 10 MG CAPSULE PO SCH ×2 (08:42→21:12)
[2021-09-07] MEDS ORDERED: ACETAMINOPHEN 500 MG TABLET PO PRN (09:45)
--- NOTE | 2021-09-07 09:54 | NUR ---
NURSE NOTE PT ASSESSMENTS DONE AND MEDICATIONS PASSED. PT COMPLAINS OF BACK PAIN OF "4-7" ALTERNATING SHE SAYS. PT TAKES MORPHINE BID FOR CHRONIC BACK PAIN. TYLENOL ORDERED FOR BREAK-THROUGH PAIN. PAIN MEDICATIONS GIVEN. PT IS A&OX4 AND LAYING IN BED RESTING. PT DENIES FEELING SHORT OF BREATH AT THIS TIME.
[2021-09-07 10:15] LABS: BASO % 0 % (0-3); EOS % 0 % (0-3); HEMATOCRIT 38.6 % (36.0-47.0); HEMOGLOBIN 12.6 g/dL (12.0-15.5); LYMPH # 0.9 x10^3/uL (1.0-4.8); LYMPH % 6 % (24-48); MEAN CORPUSCULAR HEMOGLOBIN 30 pg (25-35); MEAN CORPUSCULAR HGB CONC 33 g/dL (31-37); MEAN CORPUSCULAR VOLUME 92 fL (79-100); MONO # 0.4 x10^3/uL (0.0-1.1); MONO % 2 % (0-9); NEUT # 13.7 x10^3uL (1.8-7.7); NEUT % 92 % (31-73); PLATELET COUNT 356 x10^3/uL (140-400); RED CELL DISTRIBUTION WIDTH 14.2 % (11.5-14.5); WHITE BLOOD COUNT 14.9 x10^3/uL (4.0-11.0)
[2021-09-07 10:23] LABS: CALCIUM 9.3 mg/dL (8.5-10.1); CREATININE 0.8 mg/dL (0.6-1.0); GFR 72.4; POTASSIUM 4.2 mmol/L (3.5-5.1)
[2021-09-07 10:42] VITALS: BP 114/70
--- NOTE | 2021-09-07 11:58 | RAD ---
EXAM: XR CHEST 2V 09/07/2021 10:13 AM CLINICAL INDICATION: Shortness of breath, pneumonia COMPARISON: CT chest 09/04/2021 TECHNIQUE: PA and lateral views of the chest FINDINGS: The cardiac silhouette is stable. Lungs are adequately expanded. Subtle bilateral intersti tial opacities, likely corresponding with findings on CT chest 09/04/2021. No pleural effusion or pneu mothorax. There is cervical fusion hardware. Mild thoracolumbar scoliosis. IMPRESSION: Mild bilateral interstitial opacities, likely corresponding with findings on CT chest . Electronically signed by: Marissa Bustos MD (09/07/2021 11:55 AM) [id number]
[2021-09-07 12:15] LABS: % ATYL 1 % (0-0); % BANDS 4 % (0-9); % LYMPHS 4 % (24-48); % MYELOS 2 % (0-0); % SEGS 89 % (35-66)
[2021-09-07 12:17] LABS: PLT ESTIMATE ADEQUATE (ADEQUATE); TEAR DROP CELLS OCC
[2021-09-07] MEDS: rOPINIRole 1 MG TABLET. PO SCH ×2 (16:00→21:09)
[2021-09-07 17:00] VITALS: BP 156/94
[2021-09-07] MEDS: AZITHROMYCIN 500 MG in IV NORMAL SALINE 250ML 250 ML IV SCH (17:43)
[2021-09-07 19:00] VITALS: BP 152/92
[2021-09-07] MEDS: MONTELUKAST 10 MG TABLET. PO SCH (21:09)
[2021-09-07 23:00] VITALS: BP 155/84
--- NOTE | 2021-09-08 00:38 | PN ---
SUBJECTIVE: The patient with pneumonia and acute on top of chronic respiratory failure, doing somewhat better. Lungs are still quite coarse throughout. We made gradual progress with her oxygenation and begin tapering down on her steroids. Otherwise, the patient outside of a cough and not able to sleep, has no major complaints presently. OBJECTIVE: GENERAL: Pleasant white female. VITAL SIGNS: Blood pressure 114/70, respiratory rate 18, pulse 78, mild tachypnea with minimal movement, temperature 97.8 and 3 liters at 97%. GENERAL: The patient is alert and oriented as indicated. LUNGS: Show coarse breath sounds primarily in the bases, but improved. CARDIOVASCULAR: Regular sinus rhythm. ABDOMEN: Soft. NEUROLOGIC: The patient is still very weakened by the pneumonic process. Otherwise, we will taper down on steroids. LABORATORY DATA: White count 14, hemoglobin 12 and hematocrit 38. Sodium and potassium 136 and 4.2, BUN and creatinine 15 and 0.8. We will continue to make further evaluation on her as indicated and hopefully ready for discharge here soon. IMPRESSION: 1. Pneumonia, bilateral lobe. 2. Acute exacerbation of chronic obstructive pulmonary disease secondary to infection. 3. Acute on top of chronic respiratory failure. 4. Type 2 diabetes. PLAN: As above. IAIN/EMILY/DEMARIO DR: IAIN/ernie TID: [id number]
[2021-09-08] MEDS: IPRATRPIUM/ALBUTEROL 0.5/2.5MG 3 ML NEBU. NEB SCH ×4 (04:29→21:37)
[2021-09-08 05:00] VITALS: BP 125/71
[2021-09-08] MEDS: LACTOBACILLUS RHAMNOSUS GG 1 CAPSULE. PO SCH ×2 (08:02→21:00)
[2021-09-08] MEDS: GABAPENTIN 400 MG CAPSULE. PO SCH ×2 (08:02→21:00)
[2021-09-08] MEDS: DULoxetine HCL 60 MG CAPSULE.DR PO SCH (08:02)
[2021-09-08] MEDS: METOPROLOL SUCC 24HR ER 25 MG TAB.ER.24H. PO SCH (08:02)
[2021-09-08] MEDS: MORPHINE ER 30 MG TABLET.ER PO SCH ×2 (08:03→21:01)
[2021-09-08] MEDS: ATORVASTATIN CALCIUM 20 MG TABLET PO SCH (08:03)
[2021-09-08] MEDS: methylPREDNISolone SOD SUCC PF 40 MG/ML VIAL. IV SCH ×2 (08:03→21:05)
[2021-09-08] MEDS: LORazepam 1 MG TABLET PO SCH ×3 (08:04→21:02)
[2021-09-08] MEDS: CHOLECALCIFEROL (VITAMIN D3) 1,000 UNIT TABLET PO SCH (08:04)
[2021-09-08] MEDS: MELOXICAM 7.5 MG TABLET PO SCH (08:04)
[2021-09-08] MEDS: ASPIRIN ENTERIC COATED 81 MG TABLET.DR. PO SCH (08:04)
[2021-09-08] MEDS: NORTRIPTYLINE 10 MG CAPSULE PO SCH ×2 (08:04→21:01)
[2021-09-08] MEDS: CETIRIZINE HCL 10 MG TABLET PO SCH (08:04)
[2021-09-08] MEDS: INSULIN LISPRO 300 UNITS/3 ML VIAL. SQ SCH ×3 (08:14→17:00)
[2021-09-08] MEDS: FLUTICASONE 50MCG/NASAL SPRAY 16GM BOTTLE. NS SCH (08:40)
[2021-09-08 10:21] VITALS: BP 173/91
[2021-09-08] MEDS: dilTIAZem HCL 30 MG TABLET PO SCH ×2 (13:31→21:02)
[2021-09-08 15:41] VITALS: BP 169/83
[2021-09-08] MEDS: rOPINIRole 1 MG TABLET. PO SCH ×2 (16:09→20:59)
[2021-09-08] MEDS: AZITHROMYCIN 500 MG in IV NORMAL SALINE 250ML 250 ML IV SCH (17:09)
[2021-09-08] MEDS ORDERED: INSULIN LISPRO 300 UNITS/3 ML VIAL. SQ ONE (17:15)
--- NOTE | 2021-09-08 18:19 | NUR ---
NURSING NOTE PT WAS IN CHAIR THIS AM UPON ASSESSMENT AND MEDICATION ADMINISTRATION. PT IS A&O, DENIES ANY ACUTE PAIN, STATES SHE HAS CHRONIC LOWER BACK PAIN THAT IS CONTROLLED WITH SCHEDULED MORPHINE. PT STATES SHE IS FEELING BETTER TODAY. PT REMAINS CALM AND COOPERATIVE, NO BEHAVIORS NOTED. PT BLOOD SUGAR AT DINNER WAS 409, DR DELGADO NOTIFIED, ORDER FOR 20 UNITS OF HUMALOG OBTAINED, READ BACK, AND ADMINISTERED. WILL CONTINUE TO MONITOR.
[2021-09-08 19:55] VITALS: BP 152/89
[2021-09-08] MEDS: MONTELUKAST 10 MG TABLET. PO SCH (20:59)
[2021-09-08] MEDS: APIXABAN 2.5 MG TABLET PO SCH (21:00)
[2021-09-08] MEDS ORDERED: INSULIN GLARGINE SYRINGE. SQ SCH (21:00)
[2021-09-08] MEDS: INSULIN GLARGINE SYRINGE. SQ SCH (21:04)
--- NOTE | 2021-09-08 21:52 | PN ---
SUBJECTIVE: A 65-year-old female with bilateral lobe pneumonia, acute on top of chronic respiratory failure. The patient is on 3 liters at 97, has come down now. The patient otherwise is resting fairly comfortably. The patient's white count yesterday was elevated at 14.9, hemoglobin 12 and hematocrit 38. The patient's blood sugar did shoot up to 400 and is making good progress otherwise. OBJECTIVE: LUNGS: Show marked rhonchi throughout all lobes, although a little bit looser in between. CARDIOVASCULAR: Regular sinus rhythm. ABDOMEN: Soft, nontender. NEUROLOGIC: The patient will continue to make progress with PT, OT. IMPRESSION: Bilateral lobe pneumonia, acute exacerbation of chronic obstructive pulmonary disease secondary to the pulmonary infection, acute on top of chronic respiratory failure, type 2 diabetes, poorly controlled. MARLEN DR: Fabienne TID: [id number]
[2021-09-08 23:16] VITALS: BP 123/73
[2021-09-09] MEDS: dilTIAZem HCL 30 MG TABLET PO SCH ×2 (05:51→14:07)
[2021-09-09] MEDS: IPRATRPIUM/ALBUTEROL 0.5/2.5MG 3 ML NEBU. NEB SCH ×2 (06:02→09:15)
[2021-09-09 06:23] VITALS: BP 149/81
[2021-09-09] MEDS: methylPREDNISolone SOD SUCC PF 40 MG/ML VIAL. IV SCH (08:22)
[2021-09-09] MEDS: MELOXICAM 7.5 MG TABLET PO SCH (08:22)
[2021-09-09] MEDS: DULoxetine HCL 60 MG CAPSULE.DR PO SCH (08:22)
[2021-09-09] MEDS: MORPHINE ER 30 MG TABLET.ER PO SCH (08:23)
[2021-09-09] MEDS: LORazepam 1 MG TABLET PO SCH ×2 (08:23→14:06)
[2021-09-09] MEDS: ATORVASTATIN CALCIUM 20 MG TABLET PO SCH (08:23)
[2021-09-09] MEDS: GABAPENTIN 400 MG CAPSULE. PO SCH (08:23)
[2021-09-09] MEDS: APIXABAN 2.5 MG TABLET PO SCH (08:23)
[2021-09-09] MEDS: ASPIRIN ENTERIC COATED 81 MG TABLET.DR. PO SCH (08:24)
[2021-09-09] MEDS: CHOLECALCIFEROL (VITAMIN D3) 1,000 UNIT TABLET PO SCH (08:24)
[2021-09-09] MEDS: CETIRIZINE HCL 10 MG TABLET PO SCH (08:24)
[2021-09-09] MEDS: LACTOBACILLUS RHAMNOSUS GG 1 CAPSULE. PO SCH (08:24)
[2021-09-09] MEDS: INSULIN LISPRO 300 UNITS/3 ML VIAL. SQ SCH ×2 (08:25→12:05)
[2021-09-09] MEDS: FLUTICASONE 50MCG/NASAL SPRAY 16GM BOTTLE. NS SCH (09:00)
[2021-09-09] MEDS: NORTRIPTYLINE 10 MG CAPSULE PO SCH (09:33)
[2021-09-09] MEDS: INSULIN GLARGINE SYRINGE. SQ SCH (09:35)
[2021-09-09 11:35] VITALS: BP 133/84
[2021-09-09 14:07] VITALS: BP 133/84
[2021-09-09] MEDS ORDERED: FLUT16SP21 NS (14:51)
[2021-09-09] MEDS ORDERED: GUAI600T47 PO (14:51)
[2021-09-09] MEDS ORDERED: INSU100V8 SQ (14:51)
[2021-09-09] MEDS ORDERED: PRED5TAB PO (14:51)
[2021-09-09] MEDS ORDERED: MORP-16 PO (14:51)
[2021-09-09] MEDS ORDERED: APIX2.5T PO (14:51)
[2021-09-09] MEDS ORDERED: DILT30TA PO (14:51)
[2021-09-09] MEDS ORDERED: DOXY100T PO (14:51)
--- NOTE | 2021-09-09 15:55 | NUR ---
PATIENT IS DISCHARGED HOME, DISCHARGE INSTRUCTIONS AND PRESCRIBED MEDS REVIEWED, PATIENT VERBALIZED UNDERSTANDING. PATIENT LEFT ROOM VIA AMBULATION ACCOMP BY STAFF. PATIENT IS TAKEN HOME BY VIA PERSONAL VEHICLE.
== END 2021-09-09 15:55 | disposition home health service (06) | DRG 177 ==
LOC: ER 13:23 → ER HOLD 17:00 → 1 SOUTH 09-05 22:01
PROVIDERS: ADMIT Family Medicine; ATTEND Family Medicine
DX: J15.6 Pneumonia due to other Gram-negative bacteria (principal); J96.21 Acute and chronic respiratory failure with hypoxia; E44.0 Moderate protein-calorie malnutrition; E11.65 Type 2 diabetes mellitus with hyperglycemia; G25.81 Restless legs syndrome; J43.9 Emphysema, unspecified; M79.7 Fibromyalgia; M81.0 Age-related osteoporosis without current pathological fracture; Z20.822 Contact with and (suspected) exposure to COVID-19; F41.9 Anxiety disorder, unspecified; G43.909 Migraine, unspecified, not intractable, without status migrainosus; Z88.2 Allergy status to sulfonamides; Z88.8 Allergy status to other drugs, medicaments and biological substances; J15.9 Unspecified bacterial pneumonia; Z68.29 Body mass index [BMI] 29.0-29.9, adult
CPT/HCPCS: 36415; 71046; 71275; 80048; 80053; 81001; 82947; 83605; 84484; 85007; 85025; 87428; 93005; 94640; 94760; 96374; J0456; J0696; J1815; J2920; J2930; J7050; Q9967; U0003; 99285-25